=== PATIENT | male | born 1950 | race Caucasian/White ===

== ENCOUNTER 2020-08-01 01:25 | Outpatient (CLI) | payer MEDICARE, SELFPAY ==
[2020-08-01 18:46] LABS: SARS-CoV-2 RNA PCR Negative
== END 2020-08-01 01:26 | disposition home or self-care (01) ==
LOC: ANHCOVIDDT 01:25
PROVIDERS: Family Provider Family Medicine; PCP Family Medicine; Visit Provider Internal Medicine Gastroenterology
DX: Z01.812 Encounter for preprocedural laboratory examination (principal); Z20.822 Contact with and (suspected) exposure to COVID-19
CPT/HCPCS: C9803; U0003; U0005

== ENCOUNTER 2020-08-05 01:28 | Day surgery (SDC) | payer MEDICARE, SELFPAY ==
[2020-07-28 09:37] VITALS: BMI 49.0
[2020-08-05 06:54] VITALS: BP 134/83; PULSE 82; RESP 20; TEMP 36.4; O2SAT 95; BMI 47.1
[2020-08-05] MEDS: LACTATED RINGERS 1,000 ML 150 ML IV CONT (07:11)
--- NOTE | 2020-08-05 07:12 | WPDANESEPPF ---
Anes - Initial Pre Proc Eval Procedure: Operation Date: 08/05/20 08:00 Proposed Procedures p Screening Colonoscopy - Alfonzo Simpson MD Date/Time: 08/05/20 07:12 Surgeon: Alfonzo Simpson MD Pre Op Diagnosis: Hx of Colon Polyps Patient Data Age: 69 Gender: M Height: 1.78 m Weight: 149 kg Last Vital Signs Temp 36.4 C 08/05/20 06:54 Pulse 82 08/05/20 06:54 Resp 20 08/05/20 06:54 BP 134/83 08/05/20 06:54 Pulse Ox 95 08/05/20 06:54 Allergies Allergy/AdvReac Type Severity Reaction Status Date / Time Penicillins Allergy Unknown Unknown Verified 08/05/20 06:53 Home Medications Medication Instructions Recorded Confirmed Type alprazolam 0.5 mg tablet 0.5 mg PO BID 07/17/20 07/28/20 History amlodipine 5 mg tablet 5 mg PO DAILY 07/17/20 07/28/20 History doxazosin 4 mg tablet 4 mg PO DAILY 07/17/20 07/28/20 History fluticasone propionate 50 1 spray INTRANASAL DAILY 07/17/20 07/28/20 History mcg/actuation nasal spray,suspension losartan 100 1 tablet PO DAILY 07/17/20 07/28/20 History mg-hydrochlorothiazide 25 mg tablet metformin 500 mg tablet 500 mg PO BID 07/17/20 07/28/20 History multivitamin 1 tablet PO DAILY 07/17/20 07/28/20 History rivaroxaban 20 mg tablet 20 mg PO DAILY 07/17/20 07/28/20 History zolpidem 10 mg tablet 10 mg PO .bedtime tablet 07/17/20 07/28/20 History glipizide 5 mg tablet 10 mg PO BID tablet 07/23/20 07/28/20 History metoprolol succinate 100 mg 150 mg PO BID tablet 07/23/20 07/28/20 History tablet,extended release 24 hr sodium,potassium,mag sulfates 17.5 See Rx Instructions PO .COMPLEX 07/27/20 Rx gram-3.13 gram-1.6 gram oral soln #354 ml empagliflozin [Jardiance] 25 mg PO DAILY 07/28/20 07/28/20 History Patient hx anesthesia problems: none Family hx anesthesia problems: none PMFSH Past Medical History Medical History (Updated 08/05/20 @ 07:14 by Camilo Pa MD) Anxiety Atrial fibrillation Diabetes HTN (hypertension) Hyperlipidemia Morbid obesity with BMI of 45.0-49.9, adult [place] on CPAP Family History Family History Sibling Family history of Hodgkin's lymphoma Other Carcinoma of colon Diabetes mellitus Hypertension Social History Social History (Updated 07/23/20 @ 13:22 by Emy Morales CMA) Smoking packs per day: 0.5 Smoking cigarettes per day: 10.0 Years smoked: 20 Smoking pack-years: 10.00 Smoking status: Former smoker Tobacco type: cigarettes Smoking end date: 07/03/93 Alcohol intake: current Drinks per week: 8 Substance use: former Substance use type: does not use Living arrangements: with family Gender identity (if verbalized by the patient): Male Spiritual care concerns: No Anes - Eval Final PreProcedure Day of Procedure 08/05/20 07:12 Patient weight: morbidly obese Heart: regular rate and rhythm Lungs: clear to auscultation and normal air movement Airway: Mallampati scale class II Neurological: alert and oriented Last oral intake: >/= 8 hours ASA classification: III Emergent: no Anesthetic plan: proceed Anesthesia type and monitoring: general GIVS Informed Consent: The patient's anesthetic plan and its attendant risks and benefits were discussed with the patient/family/POA. Questions were solicited and answers provided to the satisfaction of the patient/family/POA.
[2020-08-05 07:14] LABS: Glucose Point of Care 207 (65-105)
--- NOTE | 2020-08-05 08:04 | WPDGICN ---
Assessment and Plan Assessment and plan (1) History of colon polyps: Code(s): Z86.010 - Personal history of colonic polyps Status: Acute Assessment and Plan: Because of patient's history of recurrent colon polyps and a history of large colon polyp in the past. Follow-up colonoscopy is advised 3-5 year intervals in the future. Further recommendations will be given after endoscopy. (2) Family history of colonic polyps: Code(s): Z83.71 - Family history of colonic polyps Status: Acute Assessment and Plan: Patient's father has had colon polyps suggesting this may run through his family. (3) Right sided abdominal pain: Code(s): R10.9 - Unspecified abdominal pain Status: Acute Assessment and Plan: Patient has intermittent abdominal pain. The etiology is unclear. This will be assessed at time of endoscopy as well. Patient has previously been treated empirically for possible diverticulitis. High-fiber diet is advised. (4) Obesity (BMI 30.0-34.9): Code(s): E66.9 - Obesity, unspecified Status: Acute Assessment and Plan: Weight loss is encouraged. GI Consult Note Consult date/time: 08/05/20 08:04 HPI: Anders Escalante is a 69 year old male Presents for colonoscopy. Patient has a history of colon polyps in the past. He has had surgical resection of a large polyp 2003. Most recent colonoscopy since 2017 revealed several colon polyps. His father has had colon polyps as well. Patient recently has had intermittent left-sided abdominal pain. He has been treated empirically for diverticulitis. However this is uncertain to have relieved his pain. It was an empiric treatment he is not certain this was the diagnosis. He denies any blood in his stools. His bowel habits are essentially normal. He denies any fever. Occasionally will have cramping associated with bowel movements. Review of Systems Review of Systems: All systems reviewed & are unremarkable except as noted in HPI and below PMFSH Past Medical History Medical History (Updated 08/05/20 @ 07:14 by Camilo Pa MD) Anxiety Atrial fibrillation Diabetes HTN (hypertension) Hyperlipidemia Morbid obesity with BMI of 45.0-49.9, adult [place] on CPAP Family History Family History Sibling Family history of Hodgkin's lymphoma Other Carcinoma of colon Diabetes mellitus Hypertension Social History Social History (Updated 07/23/20 @ 13:22 by Emy Morales [facility]) Smoking packs per day: 0.5 Smoking cigarettes per day: 10.0 Years smoked: 20 Smoking pack-years: 10.00 Smoking status: Former smoker Tobacco type: cigarettes Smoking end date: 07/03/93 Alcohol intake: current Drinks per week: 8 Substance use: former Substance use type: does not use Living arrangements: with family Gender identity (if verbalized by the patient): Male Spiritual care concerns: No Meds Home Medications and Allergies Home Medications Medication Instructions Recorded Confirmed Type alprazolam 0.5 mg tablet 0.5 mg PO BID 07/17/20 07/28/20 History amlodipine 5 mg tablet 5 mg PO DAILY 07/17/20 07/28/20 History doxazosin 4 mg tablet 4 mg PO DAILY 07/17/20 07/28/20 History fluticasone propionate 50 1 spray INTRANASAL DAILY 07/17/20 07/28/20 History mcg/actuation nasal spray,suspension losartan 100 1 tablet PO DAILY 07/17/20 07/28/20 History mg-hydrochlorothiazide 25 mg tablet metformin 500 mg tablet 500 mg PO BID 07/17/20 07/28/20 History multivitamin 1 tablet PO DAILY 07/17/20 07/28/20 History rivaroxaban 20 mg tablet 20 mg PO DAILY 07/17/20 07/28/20 History zolpidem 10 mg tablet 10 mg PO .bedtime tablet 07/17/20 07/28/20 History glipizide 5 mg tablet 10 mg PO BID tablet 07/23/20 07/28/20 History metoprolol succinate 100 mg 150 mg PO BID tablet 07/23/20 07/28/20 History tablet,extended release
[2020-08-05 08:31] VITALS: BP 128/65; PULSE 145; RESP 25; O2SAT 95
[2020-08-05 08:41] VITALS: BP 121/79; PULSE 97; RESP 21; O2SAT 96
--- NOTE | 2020-08-05 08:43 | SUR.PHASEII ---
Pt heart rate 145 post op. Pt states he did not take his home medication of Metoprolol. Dr. Pa(anesthesiologist) gave Metoprolol IV.
[2020-08-05 08:51] VITALS: BP 119/83; PULSE 97; RESP 21; O2SAT 95
[2020-08-05 09:01] VITALS: BP 121/80; PULSE 99; RESP 22; O2SAT 96
== END 2020-08-05 09:21 | disposition home or self-care (01) ==
PROVIDERS: Family Provider Family Medicine; PCP Family Medicine; Visit Provider Internal Medicine Gastroenterology
PROC: 0DJD8ZZ Inspection of Lower Intestinal Tract, Via Natural or Artificial Opening Endoscopic (ICD-10-PCS; CPT 45378; principal; 2020-08-05 08:00)
DX: Z12.11 Encounter for screening for malignant neoplasm of colon (principal); R10.31 Right lower quadrant pain; K57.30 Diverticulosis of large intestine without perforation or abscess without bleeding; K62.89 Other specified diseases of anus and rectum; Z86.010 Personal history of colon polyps; Z83.71 Family history of colonic polyps; E66.01 Morbid (severe) obesity due to excess calories; Z68.42 Body mass index [BMI] 45.0-49.9, adult; I48.91 Unspecified atrial fibrillation; I10 Essential (primary) hypertension; E78.5 Hyperlipidemia, unspecified; E11.9 Type 2 diabetes mellitus without complications; G47.33 Obstructive sleep apnea (adult) (pediatric); F41.9 Anxiety disorder, unspecified; Z87.891 Personal history of nicotine dependence; Z79.01 Long term (current) use of anticoagulants; Z79.84 Long term (current) use of oral hypoglycemic drugs
CPT/HCPCS: G0105; 82948; J2704; J7120

== ENCOUNTER 2022-06-25 09:57 | Emergency (ER) | payer MEDICARE, SELFPAY ==
[2022-06-25] VITALS (17 sets, daily range): BP systolic 134–155; BP diastolic 67–112; PULSE 81–94; RESP 16–27; TEMP 36.8; O2SAT 93–100
--- NOTE | ~2022-06-25 | XR_ITS ---
EXAMINATION: XR shoulder RT min 2V DATE: 06/25/2022 12:11 INDICATION: Right shoulder pain post fall TECHNIQUE: AP internally and externally rotated, AP oblique externally rotated and transscapular Y vi ews of the right shoulder were obtained. COMPARISON: None FINDINGS: Right total shoulder arthroplasty which appears well seated in near-anatomic alignment with no peripr osthetic lucency to suggest loosening or infection. No fracture to right shoulder. There is an age-in determinate mildly displaced fracture at the posterior right seventh rib. Mild acromioclavicular oste oarthritis. Soft tissues are unremarkable. IMPRESSION: 1. Right total shoulder arthroplasty in near-anatomic alignment without acute osseous abnormality at the right shoulder. 2. Age-indeterminate mildly displaced fracture at the posterior right seventh rib. Correlate for poin t tenderness in the region of the inferior margin of the scapula. Reviewed, dictated and finalized at location A. R PICKER IMPRESSION: 1. Right total shoulder arthroplasty in near-anatomic alignment without acute o sseous abnormality at the right shoulder. 2. Age-indeterminate mildly displaced fracture at the posterior right seventh r ib. Correlate for point tenderness in the region of the inferior margin of the scapula.
--- NOTE | ~2022-06-25 | XR_ITS ---
EXAMINATION: XR ribs RT 2V w CXR 2V DATE: 06/25/2022 12:11 INDICATION: Right-sided anterior rib pain post fall TECHNIQUE: PA and lateral views of the chest and 3 views of the right ribs were obtained. COMPARISON: Chest radiograph date FINDINGS: No rib fractures identified. Lungs remain clear with no focal airspace opacities, pulmonary edema, pl eural effusion or pneumothorax. Bilateral total shoulder arthroplasties. There are bridging osteophyt es at multiple levels in the spine, consistent with diffuse idiopathic skeletal hyperostosis (DISH). IMPRESSION: 1. No rib fracture or acute cardiopulmonary disease. Reviewed, dictated and finalized at location A. Y DECORATOR
--- NOTE | 2022-06-25 09:59 | ECG_ITS ---
Measurements Intervals Elizabeth Rate: 91 P: MD: 0 QRS: -83 QRSD: 81 T: 15 QT: 359 QTc: 443 Interpretive Statements ATRIAL FIBRILLATION LOW QRS VOLTAGE [QRS DEFLECTION < 0.5/1.0 mV IN LIMB/CHEST LEADS] CANNOT RULE OUT ANTERIOR MYOCARDIAL INFARCTION , PROBABLY OLD INFERIOR MYOCARDIAL INFARCTION , PROBABLY OLD ABNORMAL ECG NO PREVIOUS ECG AVAILABLE FOR COMPARISON Electronically Signed On 06-25-2022 13:38:55 TELEHEALTH NURSE EDUCATOR by Jim Clifton M.D.
--- NOTE | 2022-06-25 11:42 | ED.UPPEXIN ---
HPI - Extremity Injury (Upper) General Chief Complaint: Extremity Injury, Upper Stated Complaint: shoulder pain, fall Time Seen by Provider: 06/25/22 11:32 Source: patient Mode of arrival: ambulatory Limitations: no limitations History of Present Illness HPI narrative: This is a 71 year old male that presents to the ER after a fall last night with right-sided rib pain. Reports he tripped over a rug last night and fell onto his right side. He did not hit his head or lose consciousness. Reports since he has had right-sided rib pain. Worse with certain movements and relieved with rest. He took Tylenol earlier this morning for pain. Denies decreased range of motion, numbness, or shortness of breath. Related Data Home Medications Medication Instructions Recorded Confirmed fluticasone propionate 50 1 spray intranasal DAILY 07/17/20 11/17/21 mcg/actuation nasal spray,suspension (Allergy Relief (fluticasone)) multivitamin 1 tablet PO DAILY 07/17/20 11/17/21 rivaroxaban 20 mg tablet (Xarelto) 20 mg PO DAILY 07/17/20 11/17/21 zolpidem 10 mg tablet (Ambien) 10 mg PO .bedtime 07/17/20 11/17/21 metoprolol succinate 100 mg 150 mg PO BID 07/23/20 11/17/21 tablet,extended release 24 hr ascorbic acid (vitamin C) 1,000 mg 1 g PO DAILY 05/18/21 11/17/21 tablet mecobalamin (vitamin B12) 1,000 1,000 mcg PO DAILY 05/18/21 11/17/21 mcg chewable tablet Allergies Allergy/AdvReac Type Severity Reaction Status Date / Time Penicillins Allergy Unknown Unknown Verified 11/17/21 11:25 Review of Systems Review of Systems: CONSTITUTIONAL: Denies fever CARDIOVASCULAR: Reports chest/rib pain RESPIRATORY: Denies dyspnea. GASTROINTESTINAL: Denies abdominal pain, nausea, vomiting MUSCULOSKELETAL: Reports joint pain and myalgia. Denies back pain NEUROLOGIC: Denies numbness, or weakness. All systems reviewed & are unremarkable except as noted in HPI and below PMFSH Past Medical History Medical History Anxiety Atrial fibrillation Diabetes Edema HTN (hypertension) Hyperlipidemia Morbid obesity with BMI of 45.0-49.9, adult [place] on CPAP Family History Family History Sibling Family history of Hodgkin's lymphoma Other Carcinoma of colon Diabetes mellitus Hypertension Social History Social History Smoking packs per day: 0.5 Smoking cigarettes per day: 10.0 Years smoked: 20 Smoking pack-years: 10.00 Tobacco type: cigarettes Smoking end date: 07/03/93 Alcohol intake: current Drinks per week: 8 Substance use: former Substance use type: does not use Gender identity (if verbalized by the patient): Male Spiritual care concerns: No Exam Narrative: GENERAL: Well-appearing, well-nourished, and in no acute distress. HEAD: Normocephalic, atraumatic. EYES: EOMI. NECK: No midline cervical spine tenderness CHEST: Clear to auscultation. No respiratory distress. No wheezes rales or rhonchi HEART: Regular rate and rhythm. No murmur heard. Normal peripheral pulses. ABDOMEN: Soft, nontender, nondistended, normal active bowel sounds. BACK: No midline thoracic or lumbar spine tenderness EXTREMITIES: Normal range of motion. No edema or obvious deformity. Strength equal in bilateral upper extremities (5/5). Normal radial pulses. Normal sensation SKIN: Warm, dry, no rash. NEURO: No focal deficits. Alert and oriented x3. PSYCH: Normal mood and affect Course Vital Signs Vital signs: Vital Signs Temperature 98.2 F 06/25/22 10:07 Pulse Rate 85 06/25/22 10:07 Respiratory Rate 16 06/25/22 10:07 Blood Pressure 137/76 06/25/22 10:07 Pulse Oximetry 95 06/25/22 10:07 Oxygen Delivery Room Air 06/25/22 10:07 Temperature 98.2 F 06/25/22 10:07 Pulse Rate 94 06/25/22 11:46 Respiratory Rate 21 H 06/25/22 11:46 Blood Pressu
[2022-06-25] MEDS: HYDROcodone/acetaminophen (*CRX) 5-325 MG TABLET 1 TAB PO (11:50)
== END 2022-06-25 13:39 | disposition home or self-care (01) ==
PROVIDERS: Emergency Provider Physician Assistant; PCP Family Medicine
DX: S22.31XA Fracture of one rib, right side, initial encounter for closed fracture (principal); I48.91 Unspecified atrial fibrillation; E11.9 Type 2 diabetes mellitus without complications; I10 Essential (primary) hypertension; E78.5 Hyperlipidemia, unspecified; G47.33 Obstructive sleep apnea (adult) (pediatric); E66.01 Morbid (severe) obesity due to excess calories; Z68.42 Body mass index [BMI] 45.0-49.9, adult; Z87.891 Personal history of nicotine dependence; Z79.01 Long term (current) use of anticoagulants; Z96.611 Presence of right artificial shoulder joint; W18.09XA Striking against other object with subsequent fall, initial encounter
CPT/HCPCS: 71046; 71100; 73030; 93005; 99284; A9270

== ENCOUNTER 2023-11-13 14:47 | Outpatient (CLI) | payer MEDICARE, OTHER, SELFPAY ==
--- NOTE | ~2023-11-13 | XR_ITS ---
EXAM: XR lumbar spine min 4V DATE: 11/13/2023 15:07 HISTORY: M54.50 - Low back pain, unspecified . COMPARISON: None available. FINDINGS: 5 nonrib-bearing lumbar-type vertebral bodies. Mild lumbar scoliosis. Exaggerated lumbar l ordosis. No pars defect. Pedicles intact. Normal vertebral body alignment. Vertebral body heights pre served. Multilevel moderate disc space narrowing and marginal osteophytosis including large bridging osteophytes. Multilevel moderate lower lumbar facet hypertrophy and sclerosis. Mild fusiform dilation of the proximal abdominal aorta up to 3.4 cm. No fracture or dislocation. IMPRESSION: Multilevel moderate degenerative disc disease and facet arthropathy. Fusiform aortic dila tion, recommend ultrasound of the aorta for further evaluation. Reviewed, dictated and finalized at location K. IMPRESSION: Multilevel moderate degenerative disc disease and facet arthropathy . Fusiform aortic dilation, recommend ultrasound of the aorta for further evalu ation.
== END 2023-11-13 14:48 ==
PROVIDERS: PCP Family Medicine; Visit Provider Physician Assistant Medical
DX: M51.36 Other intervertebral disc degeneration, lumbar region (principal)
CPT/HCPCS: 72110

== ENCOUNTER 2023-11-17 10:46 | Outpatient (CLI) | payer MEDICARE, SELFPAY ==
--- NOTE | ~2023-11-17 | US_ITS ---
EXAMINATION: US aorta DATE: 11/17/2023 11:07 INDICATION: Abdominal aortic aneurysm. TECHNIQUE: Grayscale, color Doppler, and pulsed Doppler images of the aorta and common iliac arteries were obtained. COMPARISON: None. FINDINGS: The proximal aorta measures 2.2 cm. The region of the mid and distal abdominal aorta and common iliac arteries is obscured by shadowing bowel gas. IMPRESSION: 1. Limited visualization of the proximal abdominal aorta which is normal in diameter. The remainder o f the mid to distal aorta is obscured. Reviewed, dictated and finalized at location A. IMPRESSION: 1. Limited visualization of the proximal abdominal aorta which is normal in phyllis meter. The remainder of the mid to distal aorta is obscured.
== END 2023-11-17 10:47 ==
LOC: MICIMG 10:47
PROVIDERS: PCP Family Medicine; Visit Provider Physician Assistant Medical
DX: I71.40 Abdominal aortic aneurysm, without rupture, unspecified (principal)
CPT/HCPCS: 76775

== ENCOUNTER 2023-11-22 08:24 | Outpatient (CLI) | payer MEDICARE, SELFPAY ==
--- NOTE | ~2023-11-22 | CT_ITS ---
EXAMINATION: CT abdomen pelvis w con DATE: 11/22/2023 09:00 INDICATION: Abdominal aortic aneurysm without rupture. TECHNIQUE: Computed tomography (CT) of the abdomen and pelvis was performed with 100 mL Omnipaque 350 intravenous contrast. Automated exposure control and iterative reconstruction technique were employe d. The dose-length product was 1196.57 mGy-cm. COMPARISON: Ultrasound 11/17/2023 FINDINGS: The visualized portions of the lung bases demonstrate mild atelectasis. Calcified pulmonary nodules are consistent with old granulomatous disease. No pleural effusion. There is left atrial enl argement of the heart. There are coronary artery calcifications. No pericardial effusion. The liver, gallbladder, spleen, pancreas, and adrenal glands are normal. There is an 8 mm stone in right kidney. Left kidney is normal. There is calcified atherosclerosis of the aorta and many of the other arterie s. The prostate is mildly enlarged. There are bilateral inguinal hernias containing fat. There is div erticulosis of the colon without evidence of diverticulitis. There are changes of right hemicolectomy . There are no pathologically enlarged lymph nodes. There is no free intraperitoneal fluid. There are bridging endplate osteophytes at multiple levels in the spine, consistent with diffuse idiopathic sk eletal hyperostosis (DISH). There is severe lumbar spondylosis. IMPRESSION: 1. No abdominal aortic aneurysm. Reviewed, dictated and finalized at location A.
[2023-11-22 08:48] LABS: Estimated Glomerular Filt Rate > 60
== END 2023-11-22 08:25 ==
PROVIDERS: PCP Specialist; Visit Provider Physician Assistant Medical
DX: I71.40 Abdominal aortic aneurysm, without rupture, unspecified (principal)
CPT/HCPCS: 74177; Q9967

== ENCOUNTER 2025-01-28 13:32 | Outpatient (CLI) | payer MEDICARE, SELFPAY ==
--- NOTE | ~2025-01-28 | CT_ITS ---
CT of the Abdomen and Pelvis: Indication: Abdominal pain Technique: 2.5 mm axial scans were obtained through the abdomen and pelvis following intravenous adm inistration of 100 cc of Omnipaque 350. Dose reduction technique was used on this scan by utilizing a utomated exposure control and iterative reconstruction technique. The dose-length product (DLP) was 1 158.55 mGy-cm. COMPARISON: 11/22/2023 Findings: Scans through the lung bases demonstrate scattered calcified granulomas. Diffuse hepatic steatosis noted. The spleen, pancreas, gallbladder, adrenals and left kidney are with in normal limits. 9 mm nonobstructing right renal stone present. There are atherosclerotic calcificat ions of the aorta. No lymphadenopathy. No bowel obstruction or bowel wall thickening. Evidence of prior partial right colectomy. Images through the pelvis were performed. Urinary bladder unremarkable. No pelvic mass seen. No ascit es. Impression: No acute abnormalities seen. Diffuse hepatic steatosis. 9 mm nonobstructing right renal stone. Reviewed, dictated and finalized at [facility]. Impression: No acute abnormalities seen. Diffuse hepatic steatosis. 9 mm nonobstructing right renal stone.
[2025-01-29 10:55] LABS: Estimated Glomerular Filt Rate > 60
== END 2025-01-28 13:33 | disposition home or self-care (01) ==
LOC: MICIMG 13:34
PROVIDERS: PCP Family Medicine; Visit Provider Family Medicine
DX: R10.9 Unspecified abdominal pain (principal); K76.0 Fatty (change of) liver, not elsewhere classified; N20.0 Calculus of kidney
CPT/HCPCS: 74177; Q9967